=== PATIENT | female | born 1995 ===

== ENCOUNTER 2024-04-24 18:58 | Emergency (ER) | payer SELFPAY, OTHER ==
[2024-04-24] MEDS ORDERED: Naproxen 500 MG TAB ONE (22:56)
[2024-04-24] MEDS ORDERED: Lidocaine 4% Patch ONE (22:56)
== END 2024-04-24 23:38 | disposition home or self-care (01) ==
LOC: ERS 18:58
DX: S16.1XXA Strain of muscle, fascia and tendon at neck level, initial encounter (principal); M54.31 Sciatica, right side; V43.52XA Car driver injured in collision with other type car in traffic accident, initial encounter; Y93.89 Activity, other specified; Y92.410 Unspecified street and highway as the place of occurrence of the external cause
CPT/HCPCS: 70450; 72100